=== PATIENT | male | born 1995 | race Caucasian/White ===

== ENCOUNTER 2018-02-03 15:45 | Emergency (ER) | payer BC, MEDICAID, SELFPAY ==
[~2018-02-03] VITALS: Ht 172.7 cm; Wt 160.5 kg
[2018-02-03 15:48] VITALS: BP 186/95
[2018-02-03] MEDS ORDERED: KETOROLAC 30 MG/1 ML ONE (16:19)
[2018-02-03] MEDS ORDERED: METHOCARBAMOL 750 MG TABLET ONE (16:19)
[2018-02-03] MEDS ORDERED: KETOROLAC 30 MG/1 ML IM ONE (16:30)
[2018-02-03] MEDS ORDERED: METHOCARBAMOL 750 MG TABLET PO ONE (16:30)
[2018-02-03] MEDS ORDERED: HYDROcodone/APAP 5/325 TABLET PO ONE (17:00)
[2018-02-03] MEDS ORDERED: HYDROcodone/APAP 5/325 TABLET ONE (17:02)
== END 2018-02-03 17:20 | disposition home or self-care (01) ==
LOC: ED 17:00
DX: S39.012A Strain of muscle, fascia and tendon of lower back, initial encounter (principal); X58.XXXA Exposure to other specified factors, initial encounter; Y93.89 Activity, other specified; Y92.89 Other specified places as the place of occurrence of the external cause; Y99.2 Volunteer activity
CPT/HCPCS: 72220; 96372; 99284; J1885

== ENCOUNTER 2019-08-11 03:40 | Emergency (ER) | payer BC, OTHER ==
[~2019-08-11] VITALS: Ht 172.7 cm; Wt 158.1 kg
[2019-08-11] MEDS ORDERED: MORPHINE SULFATE 4 MG/ML, 1ML IVPush PRN (04:00)
[2019-08-11] MEDS ORDERED: SODIUM CHLORIDE 0.9% 1,000ML IVBOLUS ONE (04:00)
[2019-08-11] MEDS ORDERED: ONDANSETRON 2MG/ML, 2ML IVPush ONE (04:00)
[2019-08-11] MEDS ORDERED: KETOROLAC 30 MG/1 ML IVPush ONE (04:00)
[2019-08-11] MEDS ORDERED: SODIUM CHLORIDE FLUSH 10ML SYR IVF ONE (04:00)
--- NOTE | 2019-08-11 04:14 | NUR ---
Pt reports 12 hours of right lumbar pain that has radiated to his RLQ. Pt denies urinary symptoms or N/V/D. Pt states he is most concerned for appendicits after speaking to a family member.
[2019-08-11] MEDS ORDERED: ONDANSETRON 2MG/ML, 2ML ONE (04:17)
[2019-08-11] MEDS ORDERED: KETOROLAC 30 MG/1 ML ONE (04:17)
[2019-08-11] MEDS ORDERED: MORPHINE SULFATE 4 MG/ML, 1ML ONE (04:17)
[2019-08-11 04:33] LABS: BASOPHILS # (AUTO) 0.04 x10^3/uL (0-0.1); BASOPHILS % (AUTO) 0 % (0-1); EOSINOPHILS % (AUTO) 2 % (1-7); LYMPHOCYTES # (AUTO) 2.54 x10^3/uL (1-3.4); LYMPHOCYTES % (AUTO) 21 % (22-44); MD NO; MEAN CORPUSCULAR HEMOGLOBIN 30.4 pg (27.5-34.5); MEAN CORPUSCULAR HGB CONC 33.5 g/dL (33.2-36.2); MEAN CORPUSCULAR VOLUME 90.9 fL (81-97); MEAN PLATELET VOLUME 9.3 fL (7.4-10.4); MONOCYTES # (AUTO) 0.62 x10^3/uL (0.2-0.8); MONOCYTES % (AUTO) 5 % (2-9); NEUTROPHILS # (AUTO) 8.45 x10^3/uL (1.8-6.8); NEUTROPHILS % (AUTO) 71 % (42-75); PLATELET COUNT 310 x10^3/uL (130-400); RED BLOOD COUNT 4.93 x10^6/uL (4.38-5.82); RED CELL DISTRIBUTION WIDTH 15.5 % (9.4-14.8)
[2019-08-11 04:43] LABS: CHLORIDE 111 mmol/L (98-107)
[2019-08-11 04:51] LABS: ALANINE AMINOTRANSFERASE 36 U/L (12-78); ALBUMIN 3.8 g/dL (3.4-5.0); ALKALINE PHOSPHATASE 113 U/L (45-117); ANION GAP 8 mmol/L (5-15); BILIRUBIN,TOTAL 0.6 mg/dL (0.2-1.0); CALCIUM 9.5 mg/dL (8.5-10.1); CREATININE 0.94 mg/dL (0.7-1.3); TOTAL PROTEIN 8.5 g/dL (6.4-8.2)
[2019-08-11 05:16] LABS: MICROSCOPIC INDICATED
[2019-08-11 05:27] LABS: CULTURE INDICATED? NO
[2019-08-11 05:57] VITALS: BP 135/84
== END 2019-08-11 05:59 | disposition home or self-care (01) ==
LOC: ED 05:03
DX: N20.1 Calculus of ureter (principal); K76.0 Fatty (change of) liver, not elsewhere classified; R93.5 Abnormal findings on diagnostic imaging of other abdominal regions, including retroperitoneum; R00.0 Tachycardia, unspecified; I10 Essential (primary) hypertension; Z90.89 Acquired absence of other organs
CPT/HCPCS: 36415; 74176; 80053; 81001; 83690; 85025; 93005; 96374; 96375; 99285; J1885; J2270; J2405; J7030